=== PATIENT | female | born 1970 | race Caucasian/White ===

== ENCOUNTER 2017-03-12 20:37 | Emergency (ER) | payer OTHER ==
[~2017-03-12] VITALS: Ht 170.2 cm; Wt 101.1 kg
[~2017-03-12 20:37] MED LIST: DICY10CA53 PO; FERR325T20 PO; MAGNESIUM PO; MERC50TA17 PO; METO10TA82 PO; MULT-212 PO; ONDA4TAB7 PO; OXYC-223 PO; SENN-25 PO; SERT100T PO; SUMA100T3 PO; VITA1CAP PO
[2017-03-12 20:46] VITALS: BP 130/82
== END 2017-03-12 22:32 | disposition home or self-care (01) ==
LOC: ED 22:26
DX: L03.115 Cellulitis of right lower limb (principal); K50.90 Crohn's disease, unspecified, without complications; Z90.710 Acquired absence of both cervix and uterus
CPT/HCPCS: 99283

== ENCOUNTER 2018-10-29 12:06 | Emergency (ER) | payer OTHER ==
[~2018-10-29] VITALS: Ht 170.2 cm; Wt 100.0 kg
[~2018-10-29 12:06] MED LIST changes: +FERR325T18 PO; -FERR325T20 PO; -OXYC-223 PO; +OXYC-306 PO
--- NOTE | 2018-10-29 12:18 | NUR ---
NIL X 1
[2018-10-29 12:19] VITALS: BP 117/64
== END 2018-10-29 13:42 | disposition home or self-care (01) ==
LOC: ED 13:34
DX: S93.431A Sprain of tibiofibular ligament of right ankle, initial encounter (principal); K50.90 Crohn's disease, unspecified, without complications; Z91.018 Allergy to other foods; X58.XXXA Exposure to other specified factors, initial encounter; Y93.01 Activity, walking, marching and hiking; Y92.488 Other paved roadways as the place of occurrence of the external cause; Y99.8 Other external cause status
CPT/HCPCS: 99283